=== PATIENT | female | born 1955 | race African-American/Black ===

== ENCOUNTER 2017-06-21 13:50 | Emergency (ER) | payer OTHER ==
[2017-06-21 14:06] VITALS: BP 138/79; PULSE 66; TEMP 97.9; BMI 30.2
--- NOTE | 2017-06-21 15:01 | PDOC ---
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 Patient reports a right knee pain but no numbness or weakness. Patient states she bleeds she twisted her right knee and potentially her right lower back. Complaining about some right lower back discomfort. - Physicial Exam PE: 06/21/17 14:57 GENERAL: Awake, alert, and fully oriented, in no acute distress. HEAD: No signs of trauma EYES: PERRLA, EOMI, sclera anicteric, conjunctiva clear ENT: Auricles normal inspection, hearing grossly normal, nares patent, oropharynx clear without exudates. NECK: Normal ROM, supple, no lymphadenopathy, JVD, or masses LUNGS: Breath sounds equal, clear to auscultation bilaterally. No wheezes, and no crackles HEART: Regular rate and rhythm, normal S1 and S2, no murmurs, rubs or gallops ABDOMEN: Soft, nontender, normoactive bowel sounds. No guarding, no rebound. No masses EXTREMITIES: Normal range of motion, no edema. RLE: 2+ DP pulse. sensation intact throughout. FROM Right knee and R hip. TTP lateral and medial right knee. Negative anterior and posterior drawer test. Negative varus and valgus stress test. BACK: mild Right lower back muscle discomfort elicited on palpation. NEUROLOGICAL: Cranial nerves II through XII grossly intact. Normal speech, normal gait SKIN: Warm, Dry, normal turgor, no rashes or lesions noted. - Medical Decision Making 06/21/17 14:55 X-ray demonstrates periosteal thickening and slight irregularity of the proximal femur diaphysis which may reflect possible trauma. I suspect that this is likely MSK vs. knee sprain. Supportive care Follow up with PMD
--- NOTE | 2017-06-21 15:13 | PDOC ---
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 She states that three days ago she twisted her knee while at work. She was able to finish work, and pain was under some control using ibuprofen and tylenol. She is able to ambulate. She is especially worried about her knee due to removal of a mass with follow up radiation to the area when she was a child. She is unsure of exactly what was being treated. She denies nausea, vomiting, fevers and chills. She denies chest pain and shortness of breath. Past History - Past Medical History Allergies/Adverse Reactions: Allergies Allergy/AdvReac Type Severity Reaction Status Date / Time No Known Allergies Allergy Verified 06/21/17 13:59 Home Medications: Ambulatory Orders NK [No Known Home Medication] 06/21/17 - Psycho/Social/Smoking Cessation Hx Anxiety: No Suicidal Ideation: No Smoking History: Never smoked Hx Alcohol Use: No Drug/Substance Use Hx: No Substance Use Type: None Review of Systems - Review of Systems Comments:: 06/21/17 15:20 GENERAL/CONSTITUTIONAL: No fever or chills. No weakness. HEAD, EYES, EARS, NOSE AND THROAT: No change in vision. . No sore throat. CARDIOVASCULAR: No chest pain or shortness of breath RESPIRATORY: No cough, wheezing GASTROINTESTINAL: No nausea, vomiting, diarrhea or constipation. GENITOURINARY: No dysuria, frequency, or change in urination. MUSCULOSKELETAL: Pain in right knee and hip. No neck or back pain. SKIN: No rash NEUROLOGIC: No headache, loss of consciousness, or change in strength/sensation. *Physical Exam - Vital Signs Last Vital Signs Temp Pulse Resp BP Pulse Ox 97.9 F 66 15 138/79 98 06/21/17 13:57 06/21/17 13:57 06/21/17 13:57 06/21/17 13:57 06/21/17 13:57 - Physical Exam Comments: 06/21/17 15:21 GENERAL: Awake, alert, and fully oriented, in no acute distress HEAD: No signs of trauma, normocephalic, atraumatic EYES: PERRLA, EOMI, sclera anicteric, conjunctiva clear ENT: Auricles normal inspection, hearing grossly normal, nares patent, Moist mucosa NECK: Normal ROM, supple LUNGS: No distress, speaks full sentences, clear to auscultation bilaterally HEART: Regular rate and rhythm, normal S1 and S2, no murmurs, rubs or gallops, peripheral pulses normal and equal bilaterally. ABDOMEN: Soft, nontender, normoactive bowel sounds. No guarding, no rebound. No masses EXTREMITIES: Normal inspection, Normal range of motion, no edema. Tender to palpation on lateral aspect of right knee No clubbing or cyanosis. NEUROLOGICAL: Cranial nerves II through XII grossly intact. Normal speech, no focal sensorimotor deficits SKIN: Warm, Dry, normal turgor, no rashes or lesions noted. ED Treatment Course - RADIOLOGY Radiology Studies Ordered: Category Date Time Status HIP & PELVIS-RIGHT [RAD] Stat Radiology 06/21/17 14:19 Completed KNEE 3 POS-RIGHT [RAD] Stat Radiology 06/21/17 14:19 Completed Medical Decision Making - Medical Decision Making 06/21/17 15:22 61F with history of distant sarcoma s/p removal and radiation here today complaining of R knee pain. Physical exam reassuring. Vital signs normal and stable. Will get x-rays to rule out fracture of right knee and hip. X-rays show no acute fracture of right knee or hip. Patient is able to ambulate fully. Given return precautions. Discharged. *DC/Admit/Observation/Transfer Diagnosis at time of Disposition: Knee pain, right Qualifiers: Chronicity: acute Qualified Code(s): M25.561 - Pain in right knee - Discharge Dispostion Disposition: HOME Condition at time of disposition: Good Admit: No - Patient Instructions Printed Discharge Instructions: DI for Knee Pain - Attestations Physician Attestion: 06/21/17 15:13 I, Dr. Manuel Flores, attest that this document has been prepared under my direction and personally reviewed by me in its entirety. I further attest, that it accurately reflects all work, treatment, procedures and medical decision -making performed by me.
== END 2017-06-21 15:46 | disposition home or self-care (01) ==
LOC: FER 13:50
DX: M25.561 Pain in right knee (principal)
CPT/HCPCS: 73523-TC; 73562-TC-RT; 99282-25